=== PATIENT | male | born 1995 | race Caucasian/White ===

== ENCOUNTER 2018-06-13 15:54 | Observation (INO) | payer BC ==
[2018-06-13] MEDS ORDERED: HYDROmorphone 1 MG/ML Syringe IVPUSH ONE ×3 (16:10→17:14)
[2018-06-13] MEDS ORDERED: Ondansetron 4 MG/2 ML SDV IVPUSH ONE (16:10)
--- NOTE | 2018-06-13 16:27 | EDM.PDOC ---
ED HPI GENERAL MEDICAL PROBLEM - General Chief Complaint: Upper Extremity Injury/Pain Stated Complaint: HORSE STEPPED ON R ARM Time Seen by Provider: 06/13/18 16:05 Source of Information: Reports: Patient History Limitations: Reports: No Limitations - History of Present Illness Onset: Today, Sudden Onset Date: 06/13/18 Duration: Constant Location: Reports: Upper Extremity, Right Quality: Reports: Stabbing, Throbbing Severity: Severe Improves with: Reports: None Worsens with: Reports: Movement Context: Reports: Trauma, Other (stepped on by a horse) Associated Symptoms: Reports: No Other Symptoms Right Arm Pain Score (Numeric/FACES): 8 - Related Data Allergies Allergy/AdvReac Type Severity Reaction Status Date / Time banana Allergy Swollen Verified 06/13/18 15:58 Eyes strawberry Allergy Swollen Verified 06/13/18 15:58 Eyes Home Meds: Home Meds . [No Known Home Meds] 06/13/18 [History] Past Medical History - Past Surgical History Musculoskeletal Surgical History: Reports: Other (See Below) Other Musculoskeletal Surgeries/Procedures:: BROKEN WRIST Social & Family History - Family History Family Medical History: Noncontributory - Tobacco Use Smoking Status *Q: Never Smoker - Recreational Drug Use Recreational Drug Use: No Review of Systems - Review of Systems Review Of Systems: See Below Constitutional: Reports: No Symptoms Eyes: Reports: No Symptoms Ears: Reports: No Symptoms Nose: Reports: No Symptoms Mouth/Throat: Reports: No Symptoms Respiratory: Reports: No Symptoms Cardiovascular: Reports: No Symptoms GI/Abdominal: Reports: No Symptoms Genitourinary: Reports: No Symptoms Musculoskeletal: Reports: Other (RIGHT arm and RIGHT shoulder pain) Skin: Reports: Other (bruising and abrasions about the RIGHT arm, RIGHT shoulder , and RIGHT upper back) Neurological: Reports: No Symptoms Psychiatric: Reports: No Symptoms ED EXAM, GENERAL - Physical Exam Exam: See Below Exam Limited By: No Limitations General Appearance: Alert, WD/WN, Mild Distress Eye Exam: Bilateral Eye: EOMI, PERRL Nose: Normal Inspection Throat/Mouth: Normal Oropharynx, Normal Voice, No Airway Compromise Head: Atraumatic, Normocephalic Neck: Normal Inspection, Supple, Non-Tender, Full Range of Motion Respiratory/Chest: No Respiratory Distress, Lungs Clear, Normal Breath Sounds, No Accessory Muscle Use, Chest Non-Tender Cardiovascular: Normal Peripheral Pulses, Regular Rate, Rhythm, No Edema, No Gallop, No JVD, No Murmur, No Rub Peripheral Pulses: 2+: Radial (L), Radial (R) GI/Abdominal: Soft, Non-Tender Back Exam: Normal Inspection, Full Range of Motion, Other (bruising and abrasions to RIGHT upper back) Extremities: Other (RIGHT upper arm is deformed and TTP. Pulse intact throughout the arm. Strength is nearly absent in the shoulder, elbow, wrist, and hand. MSK exam is otherwise without acute findings) Neurological: Alert, Oriented, CN II-XII Intact, Normal Cognition, Normal Reflexes, No Motor/Sensory Deficits Skin Exam: Warm, Dry, Other (abrasions and bruising about the RIGHT upper arm and RIGHT upper back) Course - Vital Signs Last Recorded V/S: Last Vital Signs Temp 37.4 C 06/13/18 21:00 Pulse 91 06/13/18 21:00 Resp 20 06/13/18 21:00 BP 117/72 06/13/18 21:00 Pulse Ox 99 06/13/18 21:00 - Orders/Labs/Meds Orders: Active Orders 24 hr Category Date Time Status Chest 2V [CR] Routine Exams 06/13/18 Taken Chest w Cont [CT] Stat Exams 06/13/18 20:13 Taken Humerus Rt [CR] Routine Exams 06/13/18 Taken Shoulder Comp Rt [CR] Routine Exams 06/13/18 Taken Meds: Medications Discontinued Medications Generic Name Dose Route Start Last Admin Trade Name Freq PRN Reason Stop Dose Admin Hydromorphone HCl 0.5 mg 06/13/18 16:10 06/13/18 16:11 Dilaudid IVPUSH 06/13/18 16:11 0.5 mg ONETIME ONE Administration Hydromorphone HCl 0.5 mg 06/13/18 16:59 06/13/18 16:50 Dilaudid IVPUSH 06/13/18 17:00 0.5 mg ONETIME ONE Administration Hydromorphone HCl 0.5 mg 06/13/18 17:14 06/13/18 17:16 Dilaudid IVPUSH 06/13/18 17:15 0.5 mg ONETIME ONE Administration Hydromorphone HCl 0.5 mg 06/13/18 18:02 06/13/18 18:58 Dilaudid IVPUSH 0.5 mg Q1H PRN Administration Pain Iopamidol 100 ml 06/13/18 20:11 06/13/18 20:41 Isovue-300 (61%) IVPUSH 06/13/18 20:12 100 ml ONETIME ONE Administration Ondansetron HCl 4 mg 06/13/18 16:10 06/13/18 16:10 Zofran IVPUSH 06/13/18 16:11 4 mg ONETIME ONE Administration Departure - Departure Time of Disposition: 22:01 Disposition: Refer to Observation Condition: Good Clinical Impression: Fracture of humerus, Fracture of scapula, Fracture of rib of right side, Pneumothorax - Discharge Information *PRESCRIPTION DRUG MONITORING PROGRAM REVIEWED*: Not Applicable *COPY OF PRESCRIPTION DRUG MONITORING REPORT IN PATIENT MARIO: Not Applicable Instructions: Scapular Fracture, Humerus Fracture Treated With Immobilization, Rib Fracture Referrals: PCP,None [Primary Care Provider] - Forms: ED Department Discharge - My Orders Last 24 Hours: My Active Orders 06/13/18 Chest 2V [CR] Routine Humerus Rt [CR] Routine Shoulder Comp Rt [CR] Routine 06/13/18 20:13 Chest w Cont [CT] Stat - Assessment/Plan Last 24 Hours: My Active Orders 06/13/18 Chest 2V [CR] Routine Humerus Rt [CR] Routine Shoulder Comp Rt [CR] Routine 06/13/18 20:13 Chest w Cont [CT] Stat Assessment:: XR reveals a fracture of the RIGHT humerus, RIGHT scapula, and RIGHT fifth rib. I spoke with Dr. Uribe of [facility] in [place] who reviewed the films. He advised that the patient be placed in a posterior long arm splint, a sling, and to follow up in his clinic on Thursday next week for repeat exam. I was able to place a posterior long arm splint on the patient without difficulty. CMS intact pre and post application. I kept the pateint in the ER for several hours , conducting serial exams to assess for developing intrathoracic injury. Throughout his stay his vital signs were stable. His lung sounds were clear and he was able to speak easily and at great length without any cough, wheeze, pain , or other complication. Upon repeat exam at he complained of chest wall tenderness. I ordered a CT of the chest with contrast which revealed the fractures as mentioned above as well as a very small, non dependant, loculated, pneumothorax. Because of these findings I will admit to observation and continue serial exams. medical staff specialist to monitor for changes. VS Q 2HR. I explained the findings and plan to the patient and family who are at the bedside. They report understanding and agreement with the plan.
[2018-06-13] MEDS ORDERED: HYDROmorphone 0.5 MG/0.5 ML Syringe IVPUSH PRN ×2 (18:02→22:25)
[2018-06-13] MEDS ORDERED: Iopamidol 612 MG/ML 100 ML Bottle IVPUSH ONE (20:11)
[2018-06-13] MEDS ORDERED: HYDROmorphone 1 MG/ML Syringe ONE (23:21)
[2018-06-13] MEDS ORDERED: HYDROmorphone 1 MG/ML Syringe IVPUSH PRN (23:32)
--- NOTE | 2018-06-14 09:13 | PCM.PN ---
- General Info Date of Service: 06/14/18 Functional Status: Reports: Pain Controlled, Tolerating Diet. Denies: New Symptoms - Review of Systems General: Denies: Fever, Weakness, Chills Pulmonary: Denies: Shortness of Breath, Pleuritic Chest Pain, Cough, Sputum, Hemoptysis, Wheezing Cardiovascular: Denies: Chest Pain, Palpitations, Dyspnea on Exertion Gastrointestinal: Denies: Diarrhea, Nausea, Vomiting Musculoskeletal: Reports: Other (Pain in LEFT arm and LEFT shoulder) Skin: Reports: No Symptoms Neurological: Reports: No Symptoms - Patient Data Vitals - Most Recent: Last Vital Signs Temp 37.3 C 06/14/18 08:00 Pulse 80 06/14/18 08:00 Resp 16 06/14/18 08:00 BP 120/68 06/14/18 08:00 Pulse Ox 98 06/14/18 08:00 Weight - Most Recent: 65.771 kg Med Orders - Current: Current Medications Hydromorphone HCl (Dilaudid) 0.5 mg IVPUSH Q1H PRN PRN Reason: Pain Last Admin: 06/14/18 07:02 Dose: 0.5 mg Discontinued Medications Hydromorphone HCl (Dilaudid) 0.5 mg IVPUSH ONETIME ONE Stop: 06/13/18 16:11 Last Admin: 06/13/18 16:11 Dose: 0.5 mg Hydromorphone HCl (Dilaudid) 0.5 mg IVPUSH ONETIME ONE Stop: 06/13/18 17:00 Last Admin: 06/13/18 16:50 Dose: 0.5 mg Hydromorphone HCl (Dilaudid) 0.5 mg IVPUSH ONETIME ONE Stop: 06/13/18 17:15 Last Admin: 06/13/18 17:16 Dose: 0.5 mg Hydromorphone HCl (Dilaudid) 0.5 mg IVPUSH Q1H PRN PRN Reason: Pain Last Admin: 06/13/18 18:58 Dose: 0.5 mg Hydromorphone HCl (Dilaudid) 0.5 mg IVPUSH Q1H PRN PRN Reason: Pain Last Admin: 06/13/18 23:25 Dose: 0.5 mg Hydromorphone HCl (Dilaudid) Confirm Administered Dose 1 mg .ROUTE .STK-MED ONE Stop: 06/13/18 23:22 Last Admin: 06/13/18 23:25 Dose: Not Given Iopamidol (Isovue-300 (61%)) 100 ml IVPUSH ONETIME ONE Stop: 06/13/18 20:12 Last Admin: 06/13/18 20:41 Dose: 100 ml Ondansetron HCl (Zofran) 4 mg IVPUSH ONETIME ONE Stop: 06/13/18 16:11 Last Admin: 06/13/18 16:10 Dose: 4 mg - Exam General: Alert, Oriented Neck: Supple Lungs: Clear to Auscultation, Normal Respiratory Effort. No: Decreased Breath Sounds, Crackles, Rales, Rhonchi, Rub, Stridor, Wheezing Cardiovascular: Regular Rate, Regular Rhythm, No Murmurs GI/Abdominal Exam: Soft, Non-Tender Back Exam: Normal Inspection Extremities: Other (RIGHT shoulder and RIGHT arm TTP. CMS intact throughout affected arm. MSK exam otherwise without acute findings.) Peripheral Pulses: 2+: Radial (L), Radial (R) Skin: Warm, Dry, Intact Neurological: Normal Speech Psy/Mental Status: Alert, Normal Affect, Normal Mood - Problem List Review Problem List Initiated/Reviewed/Updated: Yes - My Orders Last 24 Hours: My Active Orders 06/13/18 20:13 Chest w Cont [CT] Stat 06/13/18 22:23 Patient Status [ADT] Routine Activity as Tolerated [RC] .PRN 06/13/18 22:25 Vital Signs [RC] 0000,0200,0400,0600,0800,1000,1200,1400,1600,1800,2000,2200 06/13/18 23:32 HYDROmorphone [Dilaudid] 0.5 mg IVPUSH Q1H PRN 06/14/18 Breakfast Regular Diet [DIET] - Assessment Assessment:: The patient has improved dramatically since his ED visit. There is no new respiratory complications. He reports no difficulty breathing, coughing, wheezing, or pain. Exam is unremarkable and without acute findings. OK to DC home in care of family. I advised the patient to rest, hydrate, take all Rx as directed, fu in ortho clinic tomorrow, go to closest ED if change or worse. Patient reports understanding and agreement. DC home stable in care of family.
[2018-06-14] MEDS ORDERED: Acetaminophen/HYDROcodone 325-5 MG Tab PO PRN (09:14)
== END 2018-06-14 09:45 | disposition home or self-care (01) ==
LOC: EDBD → CC.ED 15:54 → CC.MS 22:00 → UNDOADMOB 22:00 → CC.MS 22:23 → UNDODISOB 06-14 09:45
PROVIDERS: ADMIT Nurse Practitioner Family; ATTEND Nurse Practitioner Family
DX: S42.401A Unspecified fracture of lower end of right humerus, initial encounter for closed fracture (principal); S42.101A Fracture of unspecified part of scapula, right shoulder, initial encounter for closed fracture; S22.41XA Multiple fractures of ribs, right side, initial encounter for closed fracture; K76.0 Fatty (change of) liver, not elsewhere classified; J98.11 Atelectasis; Z91.018 Allergy to other foods; W55.12XA Struck by horse, initial encounter
CPT/HCPCS: 71046; 71260; 73030-RT; 73060-RT; 96374; 96375; 96376; 99285; G0378; J1170; J2405; Q9967